=== PATIENT | male | born 1940 | race Caucasian/White ===

== ENCOUNTER 2020-09-24 12:30 | Outpatient (CLI) | payer MEDICARE, SELFPAY ==
--- NOTE | 2020-09-24 12:56 | MR_ITS ---
WS: [id number] MRI RIGHT KNEE HISTORY: RIGHT KNEE MENISCAL TEAR COMPARISON: None available. Anterior cruciate ligament: Mild intrasubstance degeneration throughout the ACL. Posterior cruciate ligament: Intact. Medial collateral ligament: Intact. Posterior lateral corner structures: Intact. Medial menisci: Horizontal tear in the posterior horn extends to the inferior articular surface. Ther e is mild blunting and increased signal at the free edge. Very mild extrusion of the anterior horn. Lateral meniscus: Intrasubstance degeneration through the body of the meniscus does not definitely co ntact an articular surface. Extensor mechanism: Distal quadriceps tendon and patellar tendons are intact. Fluid and soft tissue: Small suprapatellar joint effusion. Small Calzada's cyst. Osseous and articular structures: Patellofemoral compartment: Mild lateral subluxation of the patella with moderate to severe narrowing of the lateral patellofemoral joint space. Mild chondromalacia involving the lateral patellar facet. There is no marrow edema or fracture. Medial compartment: Mild narrowing of the medial compartment. Thinning and fissuring of the cartilage . There is a full-thickness cartilage defect measuring 2 mm along the weightbearing surface of the fe moral condyle. Lateral compartment: Mild narrowing of the lateral compartment with mild fissuring of the cartilage. No marrow edema. There is a small amount of edema within the infrapatellar fat pad. MR/MR knee RT wo con* [id number] IMPRESSION: 1. Mild lateral subluxation of patella with moderate to severe narrowing of th e lateral patellofemoral joint space. 2. Mild chondromalacia lateral patellar facet. 3. Mild narrowing of the medial lateral compartments with mild chondrocalcinos is. 4. Horizontal tear posterior horn medial meniscus with blunting of the free ed ge of the meniscus. 5. Small Calzada's cyst. 6. Small amount of edema in the infrapatellar fat pad.
== END 2020-09-24 12:31 | disposition home or self-care (01) ==
LOC: RADSHAW 12:31
PROVIDERS: PCP Internal Medicine; Visit Provider Internal Medicine
DX: R60.0 Localized edema (principal); M71.21 Synovial cyst of popliteal space [Baker], right knee; S83.241A Other tear of medial meniscus, current injury, right knee, initial encounter; M22.41 Chondromalacia patellae, right knee; X58.XXXA Exposure to other specified factors, initial encounter
CPT/HCPCS: 73721

== ENCOUNTER 2023-10-16 11:22 | Emergency (ER) | payer MEDICARE, SELFPAY ==
[2023-10-16] VITALS (9 sets, daily range): BP systolic 139–188; BP diastolic 72–105; PULSE 99–105; RESP 16–19; TEMP 36.6; O2SAT 91–97
--- NOTE | 2023-10-16 11:39 | CTR_ITS ---
PROCEDURE INFORMATION: Exam: CT Abdomen And Pelvis With Contrast Exam date and time: 10/16/2023 12:26 PM Age: 83 years old Clinical indication: Abdominal pain; Generalized; Additional info: Abd pain TECHNIQUE: Imaging protocol: Computed tomography of the abdomen and pelvis with contrast. Radiation optimization: All CT scans at this facility use at least one of these dose optimization techniques: automated exposure control; mA and/or kV adjustment per patient size (includes targeted exams where dose is matched to clinical indication); or iterative reconstruction. Contrast material: OMNI 350; Contrast volume: 100 ml; Contrast route: INTRAVENOUS (IV); COMPARISON: CR XR chest 2V* [id number] 10/16/2018 8:38 AM RADIATION DOSE METRICS: Total DLP (mGy-cm): 1597.23 FINDINGS: Lungs: There is a calcified granuloma in the right lower lobe. Diaphragm: There is a moderate size sliding-type hiatal hernia. Liver: The liver is normal. Gallbladder and bile ducts: The gallbladder is normal. There is no biliary dilation. Pancreas: The pancreas is unremarkable. Spleen: Splenic size is normal. There are scattered calcifications consistent with healed granulomas. Adrenal glands: There is an intermediate density 18 x 14 mm left adrenal nodule. The right adrenal gland is unremarkable. Kidneys and ureters: There is a 6 x 4 x 4 mm stone in the distal left ureter at the ureterovesical junction. There is moderate left hydronephrosis and diffuse hydroureter. There is diffuse omer-ureteral fat stranding. There is urothelial thickening and enhancement involving the left proximal ureter. There is a delayed nephrogram on the left. No intrarenal stones are visible. Right renal parenchymal enhancement pattern is normal. There is an intermediate density 11 mm complicated cyst or nodule exophytic from the lower pole of the right kidney on axial series 5, image 51. There is no hydronephrosis or stones on the right. Stomach and bowel: The stomach is nondistended, limiting assessment of wall thickness. The small bowel is nondilated. There is mild intermittent gas and stool distension of the colon above the splenic flexure. The duct the colon is largely decompressed distally. There is moderate distal descending and sigmoid colonic diverticulosis without evidence of diverticulitis. Appendix: The appendix is normal. Intraperitoneal space: There is no free air or significant intraperitoneal free fluid. Vasculature: There is moderate aortic atherosclerotic disease. The portal, splenic and superior mesenteric veins are patent. Lymph nodes: There is no lymphadenopathy in the retroperitoneum, mesentery, pelvis or inguinal regions. Urinary bladder: The urinary bladder is nondistended, limiting assessment of wall thickness. Reproductive: There is nonspecific moderate enlargement of the prostate gland. Bones/joints: There is moderate degenerative disease in the lumbar spine. There is moderate degenerative disease of both hips. The bony pelvis is intact. Soft tissues: There are small bilateral fat containing inguinal hernias. There is a small fat containing umbilical hernia. CT/CT abdomen pelvis w con* [id number] IMPRESSION: 1. 6 x 4 x 4 mm obstructive stone in the distal left ureter at the ureterovesical junction producing moderate hydronephrosis. 2. Extensive periureteral fat stranding and proximal urothelial thickening and enhancement on the left. Superimposed pyelitis may be present. If the patient has clinical signs of infection, then emergent urology consultation for decompression is recommended. 3. 11 mm indeterminate right renal nodule. Recommend non-emergent MRI without and with contrast or non-emergent CT without and with contrast. MRI is preferred for masses under 1.5 cm. 4. 18 mm left adrenal nodule. Consider 12 month follow-up adrenal CT. (Reference: Neville) 5. Incidental findings above. COMMENTS: 1. Consistent with the [employer]'s Incidental Findings Committee white paper (J Am Alhaji Radiol 2018): Any incidental renal lesion less than 1 cm or classified as too small to characterize, or any incidental cystic renal lesion characterized as simple-appearing, is likely benign. No follow-up imaging is recommended for these lesions per consensus recommendations based on imaging criteria. 2. Recommend non-emergent MRI without and with contrast or non-emergent CT without and with contrast. MRI is preferred for masses under 1.5 cm. REFERENCES: Neville SOLORIO, et al. Management of Incidental Adrenal Masses: A White Paper of the ACR Incidental Findings Committee. J Am Alhaji Radiol. 2017;14(8):7195-9630.
--- NOTE | 2023-10-16 11:43 | W.ED.ABDPA2 ---
HPI - Abdominal Pain General: Chief Complaint: Abdominal Pain Stated Complaint: abd pain Time Seen by Provider: 10/16/23 11:35 Source: patient Mode of arrival: ambulatory Limitations: no limitations History of Present Illness: 83 male states he has been having abdominal pain and constipation for the last 3 days. He states his last bowel movement was Sunday has been able to pass some gas he is take MiraLAX with no improvement had some nausea denies any vomiting. States his pain is cramping in nature and diffuse rates it an 8 out of 10 currently. Denies any fevers. Associated Symptoms: Reports constipation; Denies chills, diarrhea, dysuria, fever(s), nausea and vomiting Review of Systems Const: Denies: fever(s), chills, body aches or change in appetite Eyes: Denies: blurry vision or eye discomfort ENMT: Denies: throat pain or dental pain Card: Denies: chest pain Resp: Denies: dyspnea GI: Reports: abdominal pain and constipation; Denies: nausea, vomiting or diarrhea : Denies: dysuria Musc: Denies: neck pain or back pain Skin/Breast: Denies: rash Neuro: Denies: headache(s) Physical Exam Const: COMMON NORMALS: no acute distress, patient oriented x3 and healthy appearing HENMT: COMMON NORMALS: normocephalic and atraumatic HEAD & SCALP: normocephalic and atraumatic Eye: COMMON NORMALS: conjunctivae normal CONJUNCTIVA: Yes conjunctivae normal Neck/C-Spine: COMMON NORMALS: full ROM and supple Chest: COMMONS NORMALS: normal inspection of the chest Resp: COMMON NORMALS: normal respiratory effort Cardio: COMMON NORMALS: regular rate, regular rhythm and No murmurs present (Cardio) RATE: regular rate RHYTHM: regular rhythm GI: COMMON NORMALS: Normal to inspection, nondistended, normoactive bowel sounds present, Soft to palpation and no masses PALPATION: Yes Soft to palpation OTHER: diffuse mild tenderness Extremity: COMMON NORMALS: normal to inspection and full ROM Neuro: COMMON NORMALS: patient oriented x3, moves all extremities and no focal motor deficits Psych: COMMON NORMALS: mental status grossly normal, Normal thought process present and cooperative THOUGHT PROCESS: Normal thought process present Skin: COMMON NORMALS: no rashes or lesions noted and no wounds GENERAL SKIN EXAM: no rashes or lesions noted Course Vital Signs: Vital signs: Vital Signs Temperature 97.9 F 10/16/23 11:28 Pulse Rate 105 H 10/16/23 13:01 Respiratory Rate 19 H 10/16/23 11:50 Blood Pressure 188/97 10/16/23 11:50 Pulse Oximetry 96 10/16/23 13:01 Oxygen Delivery Me thod Room Air 10/16/23 13:01 MDM - Abdominal Pain Medical Decision Making Patient presents for abdominal pain he is found to have a kidney stone. He does have an elevated white count CT is concern for pyelitis side spoke to the urologist Dr. Crane at [facility] in [place] he recommended patient to be transferred there for possible stone removal. Do not have urology there will transfer there for higher level of care Medical Records I reviewed the patient's medical records. Lab Data I reviewed the patient's lab results. 10/16/23 11:41 10/16/23 11:41 Labs/Radiology: Radiology Impressions Abdomen/Pelvis CT 10/16/23 11:39 IMPRESSION: 1. 6 x 4 x 4 mm obstructive stone in the distal left ureter at the ureterovesical junction producing moderate hydronephrosis. 2. Extensive periureteral fat stranding and proximal urothelial thickening and enhancement on the left. Superimposed pyelitis may be present. If the patient has clinical signs of infection, then emergent urology consultation for decompression is recommended. 3. 11 mm indeterminate right renal nodule. Recommend non-emergent MRI without and with contrast or non-emergent CT without and with contrast. MRI is preferred for masses under 1.5 cm. 4. 18 mm left adrenal nodule. Consider 12 month follow-up adrenal CT. (Reference: Neville) 5. Incidental findings above. COMMENTS: 1. Consistent with the [employer]'s Incidental Findings Committee white paper (J Am Alhaji Radiol 2018): Any incidental renal lesion less than 1 cm or classified as too small to characterize, or any incidental cystic renal lesion characterized as simple-appearing, is likely benign. No follow-up imaging is recommended for these lesions per consensus recommendations based on imaging criteria. 2. Recommend non-emergent MRI without and with contrast or non-emergent CT without and with contrast. MRI is preferred for masses under 1.5 cm. REFERENCES: Neville SOLORIO, et al. Management of Incidental Adrenal Masses: A White Paper of the ACR Incidental Findings Committee. J Am Alhaji Radiol. 2017;14(8):6209-0799. ADDENDUM: 10/16/23 3215 THIS REPORT CONTAINS FINDINGS THAT MAY BE CRITICAL TO PATIENT CARE. The findings and recommendations were verbally communicated by me via telephone conference with HARRISON VO at 1:13 PM CDT on 10/16/2023. The findings were acknowledged and understood. Laboratory Results WBC 19.96 10^3/uL (3.29-11.43) H 10/16/23 11:41 RBC 5.48 10^6/uL (3.85-5.65) 10/16/23 11:41 Hgb 16.20 g/dL (11.27-16.99) 10/16/23 11:41 Hct 49.3 % (37-53) 10/16/23 11:41 MCV 90.0 fl (82-101) 10/16/23 11:41 MCH 29.6 pg (27-33) 10/16/23 11:41 MCHC 32.9 g/dL (30-55) 10/16/23 11:41 RDW 12.2 % (12.1-15.1) 10/16/23 11:41 Plt Count 257 10^3/cmm (157-399) 10/16/23 11:41 MPV 10.1 fL (7.4-10.4) 10/16/23 11:41 Neut % (Auto) 86.0 % 10/16/23 11:41 Lymph % (Auto) 5.0 % 10/16/23 11:41 [place] % (Auto) 8.3 % 10/16/23 11:41 Eos % (Auto) 0.0 % 10/16/23 11:41 Baso % (Auto) 0.2 % 10/16/23 11:41 Neut # (Auto) 17.19 10^3/uL (1.8-7.7) H 10/16/23 11:41 Lymph # (Auto) 1.0 10^3/uL (0.8-4.8) 10/16/23 11:41 [place] # (Auto) 1.7 10^3/uL (0.2-0.9) H 10/16/23 11:41 Eos # (Auto) 0.0 10^3/uL (0.0-0.8) 10/16/23 11:41 Baso # (Auto) 0.0 10^3/uL (0.0-0.1) 10/16/23 11:41 Nucleated RBC % (auto) 0 % 10/16/23 11:41 Nucleated RBCs # 0.0 /100WBC 10/16/23 11:41 Sodium 138 mmol/L (136-145) 10/16/23 11:41 Potassium 3.9 mmol/L (3.5-5.1) 10/16/23 11:41 Chloride 99 mmol/L (98-107) 10/16/23 11:41 Carbon Dioxide 25 mmol/L (22-29) 10/16/23 11:41 Anion Gap 17.9 (5-19) 10/16/23 11:41 BUN 29 mg/dL (8-23) H 10/16/23 11:41 Creatinine 1.5 mg/dL (0.7-1.2) H 10/16/23 11:41 GFR Calculation Not Reportable 10/16/23 11:41 Glucose 118 mg/dL (65-115) H 10/16/23 11:41 Calculated Osmolality 293 mOsm/kg (285-295) 10/16/23 11:41 Calcium 9.2 mg/dL (8.5-10.5) 10/16/23 11:41 Total Bilirubin 1.2 mg/dL (0.15-1.2) 10/16/23 11:41 AST 23 U/L (0-40) 10/16/23 11:41 ALT 16 U/L (0-41) 10/16/23 11:41 Alkaline Phosphatase 107 U/L (40-130) 10/16/23 11:41 Total Protein 7.4 g/dL (6.6-8.7) 10/16/23 11:41 Albumin 3.9 g/dL (3.5-5.2) 10/16/23 11:41 Globulin 3.5 g/dL (1.3-4.6) 10/16/23 11:41 Lipase 13 U/L (13-60) 10/16/23 11:41 Urine Color Yellow (Yellow) 10/16/23 12:28 Urine Appearance Clear (CLEAR) 10/16/23 12:28 Urine pH 5 (5-7) 10/16/23 12:28 Ur Specific [place] 1.025 (1.005-1.030) 10/16/23 12:28 Urine Protein Trace (Negative) 10/16/23 12:28 Urine Glucose (UA) Norm (Normal) 10/16/23 12:28 Urine Ketones 1+ (Negative) H 10/16/23 12:28 Urine Blood 3+ (Negative) H 10/16/23 12:28 Urine Nitrate Negative (Negative) 10/16/23 12:28 Urine Bilirubin 1+ (Negative) H 10/16/23 12:28 Urine Urobilinogen Neg mg/dL (Negative) 10/16/23 12:28 Ur Leukocyte Esterase Negative (Negative) 10/16/23 12:28 Urine RBC 10-15 /hpf (0-2) H 10/16/23 12:28 Urine WBC Rare /hpf (0-5) 10/16/23 12:28 Ur Squamous Epith Cells Rare /hpf (0-5) 10/16/23 12:28 Amorphous Sediment Not Reportable 10/16/23 12:28 Urine Bacteria None /hpf (NONE) 10/16/23 12:28 Fine Granular Casts Rare /lpf 10/16/23 12:28 All radiology interpretation(s) finalized by discharge Discharge Plan Discharge Patient Disposition: Xfer Short-Term Hosp Clinical Impression: Kidney stone Condition: Stable Prescriptions: No Action multivitamin Tablet 1 tab PO QAM Fish Oil Concentrate 1,000 mg Capsule 1,000 mg PO QAM amlodipine 5 mg tablet 5 mg PO QAM tamsulosin 0.4 mg capsule 0.4 mg PO DAILY@17 Stool Softener 100 mg Capsule 100 mg PO QAM Referrals: Deven Hanks DO [Primary Care Provider] - Coding Level of Care Code ED Residential Treatment Counselor for Chg Gia
[2023-10-16 11:54] LABS: Basophils % 0.2 %; Hematocrit 49.3 % (37-53); Mean Corpuscular HGB Conc 32.9 g/dL (30-55); Mean Corpuscular Hemoglobin 29.6 pg (27-33); Mean Platelet Volume 10.1 fL (7.4-10.4); Monocytes # 1.7 10^3/uL (0.2-0.9); Monocytes % 8.3 %; Neutrophils # 17.19 10^3/uL (1.8-7.7); Nucleated Red Blood Cells % 0 %; Platelet Count 257 10^3/cmm (157-399); Red Blood Count 5.48 10^6/uL (3.85-5.65); Red Cell Distribution Width 12.2 % (12.1-15.1); White Blood Count 19.96 10^3/uL (3.29-11.43)
[2023-10-16 12:11] LABS: Alanine Aminotransferase 16 U/L (0-41); Albumin Level 3.9 g/dL (3.5-5.2); Alkaline Phosphatase 107 U/L (40-130); Anion Gap 17.9 (5-19); Aspartate Amino Transferase 23 U/L (0-40); Blood Urea Nitrogen 29 mg/dL (8-23); Calcium 9.2 mg/dL (8.5-10.5); Carbon Dioxide 25 mmol/L (22-29); Chloride 99 mmol/L (98-107); Globulin 3.5 g/dL (1.3-4.6); Glucose 118 mg/dL (65-115); Lipase 13 U/L (13-60); Osmolality Calculated 293 mOsm/kg (285-295); Potassium 3.9 mmol/L (3.5-5.1); Sodium 138 mmol/L (136-145); Total Bilirubin 1.2 mg/dL (0.15-1.2); Total Protein 7.4 g/dL (6.6-8.7)
[2023-10-16] MEDS: iohexol 350 mg/mL 500 mL Btl (per mL) IV (12:27)
[2023-10-16 12:52] LABS: Add Urine Microscopic? YES; Bilirubin Urine 1+ (Negative); Blood Urine 3+ (Negative); Glucose Urine UA Norm (Normal); Ketones Urine 1+ (Negative); Leukocyte Esterase Urine Negative (Negative); Nitrate Urine Negative (Negative); Protein Urine Trace (Negative); Specific Gravity, Urine 1.025 (1.005-1.030); Urine Appearance Clear (CLEAR); Urine Color Yellow (Yellow); Urobilinogen Urine Neg (Negative); pH Urine 5 (5-7)
[2023-10-16 12:53] LABS: Add Urine Culture? Yes; Fine Granular Casts Urine RARE /lpf; Squamous Epithelial Cell Urine RARE /hpf (0-5); WBC Urine RARE /hpf (0-5)
[2023-10-16] MEDS: piperacillin-tazobactam 3.375 GM in sodium chloride 0.9% (plus) 50 ML IV (13:43)
== END 2023-10-16 19:44 | disposition short-term general hospital (02) ==
PROVIDERS: Emergency Provider Emergency Medicine; PCP Internal Medicine
DX: N13.2 Hydronephrosis with renal and ureteral calculous obstruction (principal)
CPT/HCPCS: 36415; 74177; 80053; 81001; 83690; 85025; 87086; 99285; J2543; Q9967